=== PATIENT | male | born 1975 | race Caucasian/White ===

== ENCOUNTER 2020-08-19 10:24 | Emergency (ER) | payer OTHER ==
[2020-08-19 10:36] VITALS: BP 141/90; PULSE 102; TEMP 98.5; BMI 23.2
== END 2020-08-19 11:33 | disposition home or self-care (01) ==
LOC: JERFT 10:24
DX: S22.31XA Fracture of one rib, right side, initial encounter for closed fracture (principal)
CPT/HCPCS: 71045-TC-FY; 71101-TC-RT-FY; 99284-25

== ENCOUNTER 2021-05-24 15:17 | Emergency (ER) | payer OTHER ==
[2021-05-24 15:32] VITALS: BP 137/91; PULSE 83; TEMP 97.3; BMI 23.7
[2021-05-24] MEDS ORDERED: LIDOCAINE 5% TOPICAL PATCH TP ONE (15:51)
[2021-05-24] MEDS ORDERED: KETOROLAC TROMETHAMINE 30 MG/1 ML VIAL IM ONE (15:51)
[2021-05-24] MEDS ORDERED: diazePAM 5 MG TABLET PO ONE (15:51)
[2021-05-24] MEDS ORDERED: LIDOCAINE 5% TOPICAL PATCH ONE (15:55)
[2021-05-24] MEDS ORDERED: KETOROLAC TROMETHAMINE 30 MG/1 ML VIAL ONE (15:56)
[2021-05-24] MEDS ORDERED: diazePAM 5 MG TABLET ONE (15:56)
[2021-05-24] MEDS ORDERED: LIDOCAINE PATCH REMOVAL MC SCH (22:00)
== END 2021-05-24 17:12 | disposition home or self-care (01) ==
LOC: JERFT 15:17
PROC: 3E0233Z Introduction of Anti-inflammatory into Muscle, Percutaneous Approach (ICD-10-PCS; principal; 2021-05-24)
DX: M54.50 Low back pain, unspecified (principal)
CPT/HCPCS: 72100-TC-FY; 99284-25

== ENCOUNTER 2023-02-04 11:30 | Emergency (ER) | payer OTHER ==
[2023-02-04 11:45] VITALS: RESP 18; BMI 25.1
[2023-02-04] MEDS ORDERED: SODIUM CHLORIDE 1,000 ML IV ONE (12:36)
[2023-02-04 13:03] LABS: BASO % 0.5 % (0-2.0); EOS % 0.9 % (0-4.5); HEMATOCRIT 48.1 % (35.4-49); HEMOGLOBIN 15.6 GM/dL (11.7-16.9); LYMPH % 16.4 % (8-40); MCH 27.9 pg (25.7-33.7); MCHC 32.4 g/dl (32.0-35.9); MEAN PLT VOLUME 8.5 fl (7.5-11.1); MONO % 8.4 % (3.8-10.2); NEUT % 73.8 % (42.8-82.8); PLATELET COUNT 263 10^3/uL (134-434); RBC 5.59 M/mm3 (4.00-5.60); RDW 12.7 % (11.9-15.9); WHITE BLOOD COUNT 7.4 K/mm3 (4.0-10.0)
[2023-02-04 13:22] LABS: POTASSIUM 4.7 mmol/L (3.5-5.1)
[2023-02-04 13:25] LABS: CALCIUM 8.4 mg/dL (8.5-10.1)
[2023-02-04 13:26] LABS: ALBUMIN 3.8 g/dl (3.4-5.0); BLOOD UREA NITROGEN 15.9 mg/dL (7-18); MAGNESIUM 2.3 mg/dL (1.8-2.4)
[2023-02-04 13:30] LABS: BILIRUBIN,TOTAL 0.9 mg/dL (0.2-1); TOT PROT 7.3 g/dl (6.4-8.2)
[2023-02-04] MEDS ORDERED: ACETAMINOPHEN 325 MG TABLET (FP) PO ONE (14:09)
[2023-02-04] MEDS ORDERED: ACETAMINOPHEN 325 MG TABLET (FP) ONE (14:13)
[2023-02-04 14:36] VITALS: BP 123/81; PULSE 88; TEMP 97.8
== END 2023-02-04 14:36 | disposition home or self-care (01) ==
LOC: JER 11:30
PROC: 3E0337Z Introduction of Electrolytic and Water Balance Substance into Peripheral Vein, Percutaneous Approach (ICD-10-PCS; principal; 2023-02-04)
DX: R11.2 Nausea with vomiting, unspecified (principal); R19.7 Diarrhea, unspecified; R63.0 Anorexia; K52.9 Noninfective gastroenteritis and colitis, unspecified
CPT/HCPCS: 36415; 80053; 83735; 85025; 99284-25